=== PATIENT | female | born 1985 | race Two or more races ===

== ENCOUNTER 2019-01-05 14:47 | Inpatient (IN) | payer MEDICAID ==
[~2019-01-05] VITALS: Ht 147.3 cm; Wt 68.0 kg
[2019-01-09] MEDS: LACTATED RINGERS 1,000 ML IV SCH ×2 (17:03→17:50)
[2019-01-09 17:28] LABS: CLARITY URINE CLEAR (CLEAR); COLOR URINE YELLOW (YELLOW); KETONES URINE NEGATIVE (NEGATIVE); LEUKOCYTE ESTERASE URINE NEGATIVE (NEGATIVE); NITRITE URINE NEGATIVE (NEGATIVE); OCCULT BLOOD URINE NEGATIVE (NEGATIVE); PH URINE 6.5 (4.5-8.0); PROTEIN URINE NEGATIVE (NEGATIVE); UROBILINOGEN URINE 0.2 E.U./dL (0.2-1.0)
[2019-01-09 17:31] LABS: BASOPHILS % 0.6 % (0.0-2.0); EOSINOPHILS % 0.9 % (0.0-5.0); HEMATOCRIT. 32.3 % (36.0-48.0); HEMOGLOBIN. 11.3 g/dL (12.0-16.0); LYMPHOCYTES % 26.6 % (20.0-50.0); MEAN CORPUSCULAR HEMOGLOBIN 33.7 pg (28.0-32.0); MONOCYTES % 6.3 % (2.0-8.0); NEUTROPHILS % 65.6 % (40.0-76.0); PLATELET 275 x1000/uL (130-400); RED BLOOD CELL COUNT 3.37 mill/uL (4.2-5.4); RED CELL DISTRIBUTION WIDTH 13.7 % (11.6-14.6)
[2019-01-09 17:40] LABS: *AMPHETAMINES SCREEN URINE NEGATIVE (NEGATIVE); *BARBITURATES SCREEN URINE NEGATIVE (NEGATIVE); *BENZODIAZEPINES SCREEN URINE NEGATIVE (NEGATIVE); *COCAINE SCREEN URINE NEGATIVE (NEGATIVE); METHADONE URINE SCREEN NEGATIVE (NEGATIVE); OPIATES URINE SCREEN NEGATIVE (NEGATIVE)
[2019-01-09 17:41] LABS: CANNABINOID URINE SCREEN NEGATIVE (NEGATIVE); PHENCYCLIDINE URINE SCREEN NEGATIVE (NEGATIVE)
[2019-01-09 17:41] LABS: PARTIAL THROMBOPLASTIN TIME 23.7 sec (23.4-31.0); PROTHROMBIN TIME 9.8 sec (9.6-11.0)
[2019-01-09] MEDS ORDERED: ONDANSETRON HCL 4MG/2ML INJ ONE (17:42)
[2019-01-09] MEDS ORDERED: MORPHINE SULFATE/PF 1MG/ML 10ML AMP ONE (17:42)
[2019-01-09] MEDS ORDERED: CEFAZOLIN SODIUM 1000MG/VIAL ONE (17:42)
[2019-01-09] MEDS ORDERED: OXYTOCIN 20 UNITS in LACTATED RINGERS 1,000 ML IV SCH (18:00)
[2019-01-09 18:35] LABS: HEPATITIS B SURFACE ANTIGEN NEGATIVE
[2019-01-09] MEDS ORDERED: DEXT 5%/LR + PITOCIN 20UNITS/L 1,000 ML IV SCH (18:55)
[2019-01-09] MEDS ORDERED: NALOXONE HCL 0.4 MG/ML 1ML VIAL IV PRN (19:00)
[2019-01-09] MEDS ORDERED: ACETAMINOPHEN WITH CODEINE 300/30MG TABLET PO PRN (19:00)
[2019-01-09] MEDS ORDERED: ONDANSETRON HCL 4MG/2ML INJ IV PRN (19:00)
[2019-01-09] MEDS ORDERED: DIPHENHYDRAMINE 50MG/ML VIAL IM PRN (19:00)
[2019-01-09] MEDS ORDERED: HYDROCODONE/ACETAMINOPHEN 5/325MG TABLET PO PRN (19:00)
[2019-01-09] MEDS ORDERED: ONDANSETRON HCL 4MG/2ML INJ IV STA (19:45)
[2019-01-09] MEDS: MAGNESIUM/ALUMINUM HYDROXIDE/SIMETHICONE 30ML UDC PO SCH (21:00)
[2019-01-09] MEDS: SIMETHICONE 80MG TABLET CHEW PO SCH (21:00)
[2019-01-09 23:13] VITALS: BP 85/50
[2019-01-09 23:50] VITALS: BP 103/51
[2019-01-10 02:02] VITALS: BP 93/61
[2019-01-10 04:23] VITALS: BP 94/62
[2019-01-10 07:04] LABS: BASOPHILS % 0.2 % (0.0-2.0); HEMATOCRIT. 29.7 % (36.0-48.0); HEMOGLOBIN. 10.3 g/dL (12.0-16.0); MEAN CORPUSCULAR HEMOGLOBIN 33.2 pg (28.0-32.0); MONOCYTES % 5.4 % (2.0-8.0); NEUTROPHILS % 81.4 % (40.0-76.0); PLATELET 257 x1000/uL (130-400); RED BLOOD CELL COUNT 3.09 mill/uL (4.2-5.4); RED CELL DISTRIBUTION WIDTH 13.5 % (11.6-14.6)
[2019-01-10] MEDS: MAGNESIUM/ALUMINUM HYDROXIDE/SIMETHICONE 30ML UDC PO SCH ×3 (07:30→17:30)
[2019-01-10 08:00] VITALS: BP 97/51
[2019-01-10] MEDS: SIMETHICONE 80MG TABLET CHEW PO SCH ×3 (08:00→18:00)
[2019-01-10 12:00] VITALS: BP 99/48
[2019-01-10 16:44] VITALS: BP 98/49
[2019-01-10] MEDS: IBUPROFEN 400MG TABLET PO PRN (17:21)
[2019-01-10 22:08] VITALS: BP 101/53
[2019-01-11] MEDS: DOCUSATE SODIUM 100MG CAPSULE PO SCH ×4 (01:24→19:39)
[2019-01-11] MEDS: BISACODYL 10MG SUPP PR PRN ×2 (04:48→16:12)
[2019-01-11 04:49] VITALS: BP 90/56
[2019-01-11] MEDS: IBUPROFEN 400MG TABLET PO PRN ×3 (04:59→16:21)
[2019-01-11 08:00] VITALS: BP 100/59
[2019-01-11] MEDS: MAGNESIUM/ALUMINUM HYDROXIDE/SIMETHICONE 30ML UDC PO SCH ×2 (08:13→20:39)
[2019-01-11] MEDS: SIMETHICONE 80MG TABLET CHEW PO SCH ×3 (08:14→20:37)
[2019-01-11] MEDS ORDERED: IBUP-2030 MT (14:55)
[2019-01-11] MEDS ORDERED: PREN1TAB78 MT (14:55)
[2019-01-11 15:30] VITALS: BP 101/54
[2019-01-11 20:30] VITALS: BP 96/60
[2019-01-12 03:30] VITALS: BP 101/70
[2019-01-12 08:00] VITALS: BP 104/62
[2019-01-12] MEDS ORDERED: TETANUS, DIPHTHERIA, PERTUSSIS VAC/PF 0.5ML (>7YR OLD) IM ONE (09:00)
[2019-01-12] MEDS: MAGNESIUM/ALUMINUM HYDROXIDE/SIMETHICONE 30ML UDC PO SCH (09:18)
[2019-01-12] MEDS: DOCUSATE SODIUM 100MG CAPSULE PO SCH (09:18)
[2019-01-12] MEDS: IBUPROFEN 400MG TABLET PO PRN (09:19)
[2019-01-12] MEDS: SIMETHICONE 80MG TABLET CHEW PO SCH (09:19)
[2019-01-12] MEDS: BISACODYL 10MG SUPP PR PRN (10:51)
== END 2019-01-12 12:15 | disposition home or self-care (01) | DRG 540 ==
LOC: 8 EST LDRP 01-09 16:03 → OBSVTOIN 01-09 16:03 → 8EST 01-09 21:27
PROVIDERS: ADMIT Obstetrics & Gynecology; ATTEND Obstetrics & Gynecology
PROC: 10D00Z1 Extraction of Products of Conception, Low, Open Approach (ICD-10-PCS; principal; 2019-01-09)
DX: O42.913 Preterm premature rupture of membranes, unspecified as to length of time between rupture and onset of labor, third trimester (principal); O60.14X0 Preterm labor third trimester with preterm delivery third trimester, not applicable or unspecified; O34.211 Maternal care for low transverse scar from previous cesarean delivery; O32.1XX0 Maternal care for breech presentation, not applicable or unspecified; O99.03 Anemia complicating the puerperium; Z3A.36 36 weeks gestation of pregnancy; Z37.0 Single live birth
CPT/HCPCS: 36415; 80305; 81003; 86592; 86703; 86762; 86850; 86900; 87340; 88307; 90715; J0690; J2274; J2405; J2590; J7120; A4315